=== PATIENT | female | born 1985 | race Caucasian/White ===

== ENCOUNTER → 2018-03-10 | Outpatient (CLI) | payer BC ==
--- NOTE | 2018-03-11 07:09 | MM ---
Reason for exam: screening (asymptomatic). Baseline mammogram. History: Family history of breast cancer in maternal aunt. Taking hormonal contraceptives for 10 years beginning at age 22. Physical Findings: Nurse did not find any significant physical abnormalities on exam. MG Screening Mammo w CAD Bilateral CC and MLO view(s) were taken. The breast tissue is heterogeneously dense. This may lower the sensitivity of mammography. No suspicious calcifications or masses are seen. There is no discrete abnormality. These results were verbally communicated with the patient and result sheet given to the patient on 03/10/18. ASSESSMENT: Negative, BI-RAD 1 RECOMMENDATION: Routine screening mammogram of both breasts at age 38.
== END | disposition home or self-care (01) ==
LOC: RADMAMWWP 15:03
PROVIDERS: ATTEND Family Medicine
DX: Z12.31 Encounter for screening mammogram for malignant neoplasm of breast (principal)
CPT/HCPCS: 77067

== ENCOUNTER → 2018-04-22 | Outpatient (CLI) | payer BC ==
[2018-04-22 07:30] LABS: Basophils % (A) 0 %; Eosinophils # (A) 0.2 k/uL (0-0.7); Eosinophils % (A) 2 %; HCT 41.7 % (34.0-46.0); HGB 13.6 gm/dL (11.4-16.0); Lymphocytes # (A) 2.6 k/uL (1.0-4.8); Lymphocytes % (A) 29 %; MCH 26.7 pg (25.0-35.0); MCHC 32.6 g/dL (31.0-37.0); Mean Platelet Volume 7.1; Monocytes # (A) 0.6 k/uL (0-1.0); Monocytes % (A) 6 %; Neutrophils # (A) 5.6 k/uL (1.3-7.7); Neutrophils % (A) 61 %; Platelet Count 409 k/uL (150-450); RBC 5.09 m/uL (3.80-5.40); RDW 14.6 % (11.5-15.5)
== END | disposition home or self-care (01) ==
LOC: LABPAT 06:31
PROVIDERS: ATTEND Obstetrics & Gynecology
DX: Z01.812 Encounter for preprocedural laboratory examination (principal); R87.613 High grade squamous intraepithelial lesion on cytologic smear of cervix (HGSIL)
CPT/HCPCS: 36415; 85025

== ENCOUNTER 2018-05-03 08:33 | Day surgery (SDC) | payer BC ==
[2018-04-28 09:35] VITALS: BMI 32.4
--- NOTE | 2018-05-03 07:37 | P.HPOB ---
History of Present Illness H&P Date: 05/03/18 Chief Complaint: Cervical dysplasia This is a 32-year-old woman with abnormal Paps or who is found on colposcopic biopsies to have high-grade cervical dysplasia. She is therefore scheduled to undergo cervical cold knife cone biopsy. Review of Systems Constitutional: Denies chills, Denies fever Cardiovascular: Denies chest pain, Denies shortness of breath Respiratory: Denies cough Gastrointestinal: Denies abdominal pain, Denies BRBPR Genitourinary: Denies abnormal vaginal bleeding, Denies vaginal discharge Menstruation: Reports period normal Musculoskeletal: Denies muscle weakness Integumentary: Denies rash Neurological: Denies headaches Hematologic/Lymphatic: Denies easy bleeding, Denies easy bruising Past Medical History Past Medical History: Asthma History of Any Multi-Drug Resistant Organisms: None Reported Past Surgical History: Orthopedic Surgery Additional Past Surgical History / Comment(s): right knee arthroscopy Past Anesthesia/Blood Transfusion Reactions: No Reported Reaction Past Psychological History: No Psychological Hx Reported Smoking Status: Never smoker Past Alcohol Use History: None Reported Past Drug Use History: None Reported - Past Family History Mother Family Medical History: No Reported History Medications and Allergies Home Medications Medication Instructions Recorded Confirmed Type Loy-Zl-Koerwe 1 tab PO DAILY 04/28/18 04/28/18 History Allergies Allergy/AdvReac Type Severity Reaction Status Date / Time No Known Allergies Allergy Verified 04/28/18 09:23 Exam This is a pleasant 32-year-old female in no apparent distress. HEENT exam is unremarkable. Lungs are clear and the heart is regular. The abdomen is soft. On pelvic examination she has normal female external genitalia. On speculum examination the cervix is patulous in appearance with large friable ectropion with excessive vascularity. The entire transformation zone appears abnormal. On bimanual examination there is no palpable pelvic masses and the cervix is freely mobile. Assessment and Plan (1) Cervical dysplasia Status: Acute Code(s): N87.9 - DYSPLASIA OF CERVIX UTERI, UNSPECIFIED SNOMED Code(s): 58427277 Plan: 32-year-old woman with high-grade cervical dysplasia who presented for cervical cold knife cone biopsy. This procedure has been reviewed with the patient in detail. Risks include bleeding, infection, transfusion, injury to cervix, uterus, bowel or bladder. The patient nursing RISKS and agrees to proceed.
[~2018-05-03 08:33] MED LIST: HYDROmorphone 0.5 MG/0.5 ML SYRINGE IVP PRN; LACTATED RINGERS 1,000 ML IV SCH; LIDOCAINE 1% 20 ML VIAL (10MG/ML) FOR IV START INTRADERMA PRN; Pre Op ABX Message 1 EACH MISC MISCELLANE ONE; SCOPOLAMINE 1.5MG/72HR PATCH TRANSDERM ONE
[2018-05-03] MEDS: ONDANSETRON 4 MG/2 ML VIAL IVP ONE ×2 (09:00→09:04)
[2018-05-03] MEDS: DEXAMETHASONE SOD PHOSPHATE 10 MG/ML 1 ML VIAL IV ONE ×2 (09:00→09:04)
[2018-05-03] MEDS ORDERED: LIDOCAINE 1% INJ 10MG/ML (20 ML MDV) ONE (09:24)
[2018-05-03] MEDS ORDERED: MIDAZOLAM 2 MG/2 ML VIAL ONE (09:24)
[2018-05-03] MEDS ORDERED: PROPOFOL 10 MG/ML 20 ML VIAL IV ONE (09:24)
[2018-05-03] MEDS ORDERED: fentaNYL (PF) 50 MCG/ML 2 ML AMP ONE (09:24)
[2018-05-03] MEDS ORDERED: BUPIVACAINE (PF) 0.5% 30 ML VIAL MISCELLANE ONE (09:37)
--- NOTE | 2018-05-03 10:12 | P.OP ---
Date of Procedure: 05/03/18 Preoperative Diagnosis: High-grade cervical dysplasia Postoperative Diagnosis: Same Procedure(s) Performed: Cervical cold knife cone biopsy Anesthesia: MAC Surgeon: Ester Bryant Estimated Blood Loss (ml): 200 IV fluids (ml): 500 Urine output (ml): 50 Pathology: other (Cervical biopsy) Condition: stable Disposition: PACU Indications for Procedure: High-grade cervical dysplasia Operative Findings: Enlarged, firm cervix with abnormal vascularity and lesion at 12:00. Description of Procedure: After the patient and her were met in the preoperative holding area and all questions were answered, she was taken to the operating room where anesthetic was administered without incident. She was in positioned, prepped and draped in the dorsal lithotomy position. Bladder was drained for approximately 50 mL of clear urine. Weighted speculum was placed in the vagina and the cervix was visualized. It was noted to be enlarged with hypervascularity the blood very easily to the touch. There was then area of increased vascularity approximately 0.5 x 0.5 cm at the 11 to 12 o'clock position on possibly consistent with a cervical lesion. Stay sutures were placed at the 3 and 9 o'clock position with 2-0 Vicryl suture. A level grade scalpel was then utilized to circumferentially excise the visible transformation zone. Clear margins were not obtained secondary to the abnormality noted on the cervix. This was angled inward to create a cone-type biopsy. Electrocautery was then utilized to achieve hemostasis in the base of the biopsy. There were areas however posteriorly that continue to complete. The 2-0 Vicryl stay sutures were tied down however this did not improve the situation. Therefore FloSeal and Surgicel was placed in the base of the biopsy and pressure was held to the area. After approximate 5 minutes hemostasis was noted. The cervix was observed for some time with no active bleeding noted. Instruments were then removed from the vagina and the patient was awoken from anesthetic and transported recovery area in stable condition. All counts reported to me as correct
[2018-05-03 10:20] VITALS: TEMP 97.2
[2018-05-03 10:32] VITALS: RESP 16
[2018-05-03 12:18] VITALS: BP 129/72; PULSE 91
== END 2018-05-03 12:19 | disposition home or self-care (01) ==
LOC: OR 08:33
PROVIDERS: ATTEND Obstetrics & Gynecology
DX: N87.1 Moderate cervical dysplasia (principal); J45.909 Unspecified asthma, uncomplicated; Z79.3 Long term (current) use of hormonal contraceptives
CPT/HCPCS: 81025; 88307; 57520; C1762; J2250; J1100; J2405; J2001; J3010; J2704

== ENCOUNTER 2023-02-22 19:40 | Emergency (ER) | payer BC ==
[2023-02-22 19:48] VITALS: BP 158/82; PULSE 99; RESP 16; TEMP 98.1
[2023-02-22] MEDS ORDERED: DIPH,PERTUS(ACELL)TETVAC-LF 0.5 ML VIAL IM ONE (19:54)
[2023-02-22] MEDS ORDERED: AMOXIC-POT CLAV 875-125MG 1 EACH TAB PO STA (19:55)
--- NOTE | 2023-02-22 19:57 | ED ---
General Adult HPI - General Source: patient, RN notes reviewed, old records reviewed Limitations: no limitations <Colin Plasencia - Last Filed: 02/22/23 20:25> <Kyaw Fuentes - Last Filed: 02/22/23 22:16> - General Chief complaint: Animal Bite Stated complaint: Dog Bite Time Seen by Provider: 02/22/23 19:50 - History of Present Illness Initial comments: 37-year-old female presents for evaluation of double bite to the right thumb. Patient states she was bit by her neighbors dog who is observable. Unknown vaccination status. The patient herself is not up-to-date on tetanus. She had bleeding controlled prior to arrival. This was a distal right thumb injury with laceration. No other injury. Occurred just prior to arrival (Colin Plasencia) - Related Data Home Medications Medication Instructions Recorded Confirmed Vpu-Ws-Ozgpgy 1 tab PO DAILY 04/28/18 05/03/18 Previous Rx's Medication Instructions Recorded Amoxic-Pot Clav 875-125Mg 1 tab PO Q12HR 5 Days #10 tab 02/22/23 [Augmentin 875-125] Allergies Allergy/AdvReac Type Severity Reaction Status Date / Time No Known Allergies Allergy Verified 05/03/18 08:56 Review of Systems ROS Other: All systems not noted in ROS Statement are negative. <Colin Plasencia - Last Filed: 02/22/23 20:25> ROS Other: All systems not noted in ROS Statement are negative. <Kyaw Fuentes - Last Filed: 02/22/23 22:16> ROS Statement: Those systems with pertinent positive or pertinent negative responses have been documented in the HPI. Past Medical History Past Medical History: No Reported History History of Any Multi-Drug Resistant Organisms: None Reported Past Surgical History: No Surgical Hx Reported Past Psychological History: No Psychological Hx Reported Smoking Status: Never smoker Past Alcohol Use History: None Reported Past Drug Use History: None Reported <Colin Plasencia - Last Filed: 02/22/23 20:25> General Exam Limitations: no limitations General appearance: alert, in no apparent distress Head exam: Present: atraumatic, normocephalic Eye exam: Present: normal appearance, PERRL ENT exam: Present: normal exam Neck exam: Present: normal inspection. Absent: tenderness, meningismus Respiratory exam: Present: normal lung sounds bilaterally. Absent: respiratory distress, wheezes Cardiovascular Exam: Present: regular rate, normal rhythm GI/Abdominal exam: Present: soft. Absent: distended, tenderness Extremities exam: Present: other (2 cm laceration on the dorsal surface of the right thumb distal phalanx. No active bleeding. No deformity. Cap refill 2+) Neurological exam: Present: alert, oriented X3 Psychiatric exam: Present: normal affect, normal mood Skin exam: Present: warm <Colin Plasencia - Last Filed: 02/22/23 20:25> Course Vital Signs 02/22/23 19:44 Temperature 98.1 F Pulse Rate 99 Respiratory 16 Rate Blood Pressure 158/82 O2 Sat by Pulse 98 Oximetry Procedures - Laceration Laceration #1 Consent Obtained: verbal consent Indication: laceration Site: hand Size (cm): 2 Description: linear Anesthetic Used: lidocaine 1% Anesthesia Technique: local infiltration Amount (mls): 2 Pre-repair: wound explored, irrigated extensively, deep structures intact Type of Sutures: nylon Size of Sutures: 4-0 Number of Sutures: 1 Technique: simple, interrupted Complications: pain <AileensimColin Bobbi - Last Filed: 02/22/23 20:25> Medical Decision Making <Colin Plasencia - Last Filed: 02/22/23 20:25> - Medical Decision Making Was pt. sent in by a medical professional or institution ([facility], SEWING MACHINIST, urgent care, hospital, or senior living...) When possible be specific @ -[No] Did you speak to anyone other than the patient for history (EMS, parent, family, police, friend...)? What history was obtained from this source @ -[No] Did you review nursing and triage notes (agree or disagree)? Why? @ -[I reviewed and agree with nursing and triage notes] Were old charts reviewed (outside hosp., previous admission, EMS record, old EKG, old radiological studies, urgent care reports/EKG's, senior living records)? Report findings @ -[No old charts were reviewed] Differential Diagnosis (chest pain, altered mental status, abdominal pain women, abdominal pain men, vaginal bleeding, weakness, fever, dyspnea, syncope, headache, dizziness, GI bleed, back pain, seizure, CVA, palpatations, mental health, musculoskeletal)? @ -Fracture, dislocation, laceration EKG interpreted by me (3pts min.). @ -[As above] X-rays interpreted by me (1pt min.). @Negative for fracture or dislocation CT interpreted by me (1pt min.). @ -[None done] U/S interpreted by me (1pt. min.). @ -[None done] What testing was considered but not performed or refused? (CT, X-rays, U/S, labs)? Why? @ -[None] What meds were considered but not given or refused? Why? @ -[None] Did you discuss the management of the patient with other professionals (professionals i.e. , PA, SEWING MACHINIST, lab, RT, psych nurse, social media designer, window cutter, teacher, sba business development officer, case management social worker)? Give summary @ -[No] Was smoking cessation discussed for >3mins.? @ -[No] Was critical care preformed (if so, how long)? @ -[No] Were there social determinants of health that impacted care today? How? (Homelessness, low income, unemployed, alcoholism, drug addiction, transportation, low edu. Level, literacy, decrease access to med. care, nursing home, rehab)? @ -[No] Was there de-escalation of care discussed even if they declined (Discuss DNR or withdrawal of care, Hospice)? DNR status @ -[No] What co-morbidities impacted this encounter? (DM, HTN, Smoking, COPD, CAD, Cancer, CVA, ARF, Chemo, Hep., AIDS, mental health diagnosis, sleep apnea, morbid obesity)? @ -[None] Was patient admitted / discharged? Hospital course, mention meds given and route, prescriptions, significant lab abnormalities, going to OR and other pertinent info. @37-year-old female with dog bite to the right thumb distal phalanx, there is a laceration over the dorsal surface proximal 0.2 cm. I did repair this with 1 nylon suture to allow for reapproximation and still reduce the risk of infection. This was irrigated extensively. There does not appear to be any tendon involvement. She started on prophylactic antibiotics, tetanus is updated. The dog is observable, this is a neighbor's dog. Undiagnosed new problem with uncertain prognosis? @ -[No] Drug Therapy requiring intensive monitoring for toxicity (Heparin, Nitro, Insulin, Cardizem)? @ -[No] Were any procedures done? @Laceration repair Diagnosis/symptom? @Dog bite, laceration Acute, or Chronic, or Acute on Chronic? @Acute (Colin Plasencia) Disposition Is patient prescribed a controlled substance at d/c from ED?: No Time of Disposition: 20:28 <Colin Plasencia - Last Filed: 02/22/23 20:25> <Kyaw Fuentes - Last Filed: 02/22/23 22:16> Clinical Impression: Dog bite, Laceration Disposition: HOME SELF-CARE Condition: Fair Instructions (If sedation given, give patient instructions): Animal Bite (ED), Care For Your Stitches (ED), Laceration (ED) Additional Instructions: Please return for suture removal in 10 days. Prescriptions: Amoxic-Pot Clav 875-125Mg [Augmentin 875-125] 1 tab PO Q12HR 5 Days #10 tab Referrals: Narendra Tyson MD [Primary Care Provider] - 1-2 days
--- NOTE | 2023-02-22 20:19 | XR ---
EXAMINATION TYPE: XR finger RT DATE OF EXAM: 02/22/2023 8:11 PM INDICATION: Patient age:Female; 37 years old; Reason for study: 1st digit, dog bite; [facility]. COMPARISON: None relevant TECHNIQUE: Frontal, lateral and oblique views of the right finger were obtained. FINDINGS: No evidence for fracture or dislocation. Mild soft tissue swelling. Subtle soft tissue emph ysema over the distal proximal phalanx. No radiopaque foreign bodies. IMPRESSION: 1. No acute osseous pathology of the first digit. 2. Soft tissue swelling and subcutaneous emphysema consistent with history of dog bite.
== END 2023-02-22 22:21 | disposition home or self-care (01) ==
LOC: EC 19:40
DX: S61.011A Laceration without foreign body of right thumb without damage to nail, initial encounter (principal); Z23 Encounter for immunization; W54.0XXA Bitten by dog, initial encounter
CPT/HCPCS: 12001; 90471; 90715; 99283

== ENCOUNTER → 2024-02-08 | Outpatient (CLI) | payer BC ==
--- NOTE | 2024-02-10 13:43 | MM ---
Reason for Exam: Screening (asymptomatic). Last mammogram was performed 5 year(s) and 11 month(s) ago. Patient History: Menarche at age 10. First Full-Term at age 15. Currently using Hormonal Contraceptives, beginning at age 22 for 10 years. Maternal aunt had breast cancer, age 55. Risk Values: Adeola 5 year model risk: 0.4%. NCI Lifetime model risk: 7.3%. Prior Study Comparison: 03/10/2018 Bilateral Screening Mammogram, [facility]. Tissue Density: The breasts are heterogeneously dense, which may obscure small masses. Findings: Analyzed By CAD. There is no suspicious group of microcalcifications or new suspicious mass in either breast. Overall Assessment: Negative, BI-RAD 1 Management: Screening Mammogram of both breasts in 1 year. . Patient should continue monthly self-breast exams. A clinical breast exam by your physician is recommended on an annual basis. This exam should not preclude additional follow-up of suspicious palpable abnormalities. Note on Adeola scores and lifetime risk: 1. A Adeola score greater than 3% is considered moderate risk. If this is the case, consider specialist referral to assess eligibility for a risk reducing agent. 2. If overall lifetime risk for the development of breast cancer is 20% or higher, the patient may qualify for future screening with alternating mammogram and breast MRI. Electronically signed and approved by: Archie Sidhu M.D. Radiologis
== END | disposition home or self-care (01) ==
LOC: RADMAMWWP 14:10
PROVIDERS: ATTEND Obstetrics & Gynecology
DX: Z12.31 Encounter for screening mammogram for malignant neoplasm of breast (principal); Z80.3 Family history of malignant neoplasm of breast
CPT/HCPCS: 77063; 77067

== ENCOUNTER → 2025-02-08 | Outpatient (CLI) | payer BC ==
--- NOTE | 2025-02-08 07:31 | MM ---
Reason for Exam: Screening (asymptomatic). Last screening mammogram was performed 12 month(s) ago. Patient History: Menarche at age 10. First Full-Term at age 15. Premenopausal. Currently using Hormonal Contraceptives, beginning at age 22 for 10 years. Maternal aunt had breast cancer, age 55. Last menstrual period: 01/31/2025 Risk Values: Adeola 5 year model risk: 0.4%. NCI Lifetime model risk: 7.3%. Prior Study Comparison: 03/10/2018 Bilateral Screening Mammogram, [facility]. 02/08/2024 Bilateral MG 3D screening mammo w/cad, [facility]. Tissue Density: The breasts are heterogeneously dense, which may obscure small masses. Findings: Analyzed By CAD. There is no suspicious group of microcalcifications or new suspicious mass in either breast. Overall Assessment: Negative, BI-RAD 1 Management: Screening Mammogram of both breasts in 1 year. . Patient should continue monthly self-breast exams. A clinical breast exam by your physician is recommended on an annual basis. This exam should not preclude additional follow-up of suspicious palpable abnormalities. Note on Adeola scores and lifetime risk: 1. A Adeola score greater than 3% is considered moderate risk. If this is the case, consider specialist referral to assess eligibility for a risk reducing agent. 2. If overall lifetime risk for the development of breast cancer is 20% or higher, the patient may qualify for future screening with alternating mammogram and breast MRI. [facility], , 02/08/2025 7:29 AM. Electronically signed and approved by: Archie Sidhu M.D. Radiologis
== END | disposition home or self-care (01) ==
LOC: RADMAMWWP 06:55
PROVIDERS: ATTEND Family Medicine
DX: Z12.31 Encounter for screening mammogram for malignant neoplasm of breast (principal); R92.333 Mammographic heterogeneous density, bilateral breasts; Z80.3 Family history of malignant neoplasm of breast; Z92.0 Personal history of contraception
CPT/HCPCS: 77063; 77067